=== PATIENT | female | born 1975 | race Caucasian/White ===

== ENCOUNTER 2023-03-27 23:41 | Emergency (ER) | payer MEDICARE, MEDICAID, SELFPAY ==
--- NOTE | ~2023-03-27 | XR_ITS ---
Clinical Indication: Shortness of breath PA and lateral views of the chest: Comparison: None Findings: There is linear scarring or atelectasis at the right midlung. Lungs are otherwise clear. No other evidence of focal consolidation or pleural effusion. Cardiomediastinal silhouette is within n ormal limits. Bones and soft tissues are unremarkable. Impression: Linear scarring or atelectasis right midlung, otherwise clear lungs. Reviewed, dictated and finalized at location M. Impression: Linear scarring or atelectasis right midlung, otherwise clear lungs.
[2023-03-27 23:43] VITALS: BP 128/75; PULSE 78; RESP 16; TEMP 36.3; O2SAT 100
[2023-03-27 23:54] VITALS: BP 121/77; PULSE 81; RESP 18; TEMP 36.4; O2SAT 99
[2023-03-27 23:58] VITALS: O2SAT 100
--- NOTE | 2023-03-28 | ECG_ITS ---
Measurements Intervals [place] Rate: 75 P: 23 TN: 179 QRS: -9 QRSD: 104 T: 8 QT: 403 QTc: 451 Interpretive Statements SINUS RHYTHM LOW QRS VOLTAGE IN PRECORDIAL LEADS [QRS DEFLECTION < 1.0 mV IN CHEST LEADS] MODERATE VOLTAGE CRITERIA FOR LVH, CONSIDER NORMAL VARIANT [MEETS CRITERIA IN ONE OF: R(aVL), S(V1), R(V5), R(V5/V6)+S(V1)] POSSIBLE ANTERIOR MYOCARDIAL INFARCTION , PROBABLY OLD [30 ms Q WAVE IN V3/V4, OR R < 0.2 mV IN V4] ABNORMAL ECG NO PREVIOUS ECG AVAILABLE FOR COMPARISON Electronically Signed On 03-28-2023 10:25:56 CDT by Fadi House M.D.
[2023-03-28 00:23] LABS: Basophils Percent Auto 0.3 % (0.2-1.2); Eosinophils Absolute Auto 0.1 K/mm3 (0-0.3); Eosinophils Percent Auto 3.8 % (0-4.4); Hematocrit 44.2 % (37.0-47.0); Hemoglobin 14.5 g/dL (12.0-15.0); Immature Granulocyte Absolute 0.01 K/mm3 (0.00-0.031); Immature Granulocyte Percent A 0.3 % (0-0.5); Immature Platelet Fraction Pct 3.8 % (0.9-11.2); Lymphocytes Absolute Auto 1.31 K/mm3 (0.9-3.2); Mean Corpuscular HGB Conc 32.8 g/dl (32-36); Mean Corpuscular Hemoglobin 30.3 pg (26-34); Mean Corpuscular Volume 92.5 fl (80-100); Mean Platelet Volume 10.1 fl (7.4-10.4); Monocytes Absolute Auto 0.4 K/mm3 (0.1-0.6); Monocytes Percent Auto 11.3 % (2.6-8.5); Neutrophils Absolute Auto 1.8 K/mm3 (1.3-6.7); Neutrophils Percent Auto 48.3 % (45.5-73.1); Platelet Count Result 124 k/mm3 (150-375); Red Blood Count 4.78 M/mm3 (4.2-5.4); Red Cell Distribution Width 12.2 % (11.5-14.5); White Blood Count 3.6 K/mm3 (4.5-10.0)
[2023-03-28 00:31] LABS: Alanine Aminotransferase 33 U/L (6-35); Alkaline Phosphatase 58 U/L (38-126); Anion Gap 7 mmol/L (8-16); Aspartate Amino Transferase 31 U/L (14-36); Bilirubin,Total 0.4 mg/dL (0.2-1.3); Blood Urea Nitrogen 21 mg/dL (7-17); Calcium 8.8 mg/dL (8.4-10.2); Carbon Dioxide 32 mmol/L (22-30); Chloride 101 mmol/L (98-107); Estimated CRCL calculation 87 ml/min; Estimated Glomerular Filt Rate 59; Glucose 120 mg/dL (65-110); Potassium 3.7 mmol/L (3.4-5.0); Sodium 140 mmol/L (137-145)
[2023-03-28 00:32] LABS: INR 1.1; Prothrombin Time 14.2 Seconds (11.1-14.7)
[2023-03-28 00:33] LABS: Partial Thromboplastin Time 32.3 SECONDS (22.3-36.8)
[2023-03-28 00:43] LABS: NT Pro B Type Natriuretic Pept 33 pg/mL (19.9-100); Troponin I < 0.012 ng/mL (0.000-0.034)
[2023-03-28 00:58] LABS: D Dimer 0.37 ug/mL (<0.48)
--- NOTE | 2023-03-28 01:07 | ED.GENADULT ---
HPI - General Adult General Chief complaint: Asthma Stated complaint: asthma attack Time Seen by Provider: 03/27/23 23:49 Source: patient and RN notes reviewed Mode of arrival: ambulatory Limitations: no limitations History of Present Illness HPI narrative: This is a 47 year old female with history of obstructive sleep apnea , asthma, obesity who presents for evaluation of dyspnea. She states she woke up around 10 pm tonight gasping for air. She states she felt like she was having an asthma attack. She used her rescue inhaler 8 times. She states she still feels like she is having chest tightness. She still feels like she is short of breath. She states she is coughing after use of inhaler. She feels somewhat anxious due to use of inhaler. She denies itching, fever, chills, nausea or vomiting. She denies rash. She states she has not used her CPAP for years. Related Data Home Medications Medication Instructions Recorded Confirmed cetirizine 10 mg capsule 10 mg PO DAILY 06/27/19 07/31/21 cholecalciferol (vitamin D3) 25 1,000 unit PO DAILY 06/27/19 07/31/21 mcg (1,000 unit) capsule duloxetine 60 mg capsule,delayed 60 mg PO DAILY 06/27/19 07/31/21 release esomeprazole magnesium 20 mg 20 mg PO DAILY 06/27/19 07/31/21 capsule,delayed release furosemide 20 mg tablet 20 mg PO BID 06/27/19 07/31/21 levothyroxine 88 mcg capsule 88 mcg PO DAILY 06/27/19 07/31/21 (Tirosint) lisinopril 2.5 mg tablet 2.5 mg PO DAILY 06/27/19 07/31/21 meloxicam 15 mg tablet 15 mg PO DAILY 06/27/19 07/31/21 metoclopramide HCl 5 mg tablet 5 mg PO DAILY 06/27/19 07/31/21 (Reglan) spironolactone 25 mg tablet 25 mg PO DAILY 06/27/19 07/31/21 sumatriptan succinate 100 mg tablet 100 mg PO ONCE 06/27/19 07/31/21 topiramate 100 mg capsule,extended 100 mg PO DAILY 06/27/19 07/31/21 release 24 hr dexlansoprazole 30 mg 30 mg PO BID 02/05/20 03/18/21 capsule,biphase delayed release (Dexilant) hydrocodone bitartrate 15 mg 15 mg PO TID 02/05/20 03/18/21 capsule, oral only, extended rel 12 hr cyclosporine 0.05 % eye drops 1 drp EACH EYE Q12H 03/18/21 07/31/21 (Restasis MultiDose) hydroxychloroquine 200 mg tablet 200 mg PO BID 03/18/21 07/31/21 aripiprazole 10 mg tablet (Abilify) 10 mg PO DAILY 07/31/21 07/31/21 Allergies Allergy/AdvReac Type Severity Reaction Status Date / Time erythromycin base Allergy Severe PALPITATION Verified 03/27/23 23:41 S guaifenesin Allergy Severe HIVES Verified 03/27/23 23:41 (ENTEX) Penicillins Allergy Severe PALPITATION Verified 03/27/23 23:41 S phenylephrine Allergy Severe HIVES Verified 03/27/23 23:41 (ENTEX) phenylpropanolamine Allergy Severe HIVES Verified 03/27/23 23:41 (ENTEX) codeine Allergy Unknown hives Verified 03/27/23 23:41 fentanyl Allergy Unknown hives Verified 03/27/23 23:41 morphine Allergy Unknown rash Verified 03/27/23 23:41 shrimp Allergy Unknown vomiting Verified 03/27/23 23:41 strawberry Allergy Unknown hives Verified 03/27/23 23:41 Sulfa (Sulfonamide Allergy Unknown hives Verified 07/31/21 10:34 Antibiotics) aspartame AdvReac Unknown swollen Verified 07/31/21 10:34 throat NUTRA SWEET Allergy Severe SWELLING Uncoded 07/31/21 10:34 OF THROAT/DIFFICULTY BREATHING Review of Systems Constitutional: Constitutional: Denies weakness Cardiovascular: Cardiovascular: Denies syncope, Denies rapid heart rate, Denies irregular heart rhythm, Denies leg edema and Denies dyspnea Respiratory: Respiratory: Reports chest congestion, Denies hemoptysis, Denies excessive phlegm production and Reports dyspnea Gastrointestinal: Gastrointestinal: Denies abdominal pain, Denies hematochezia, Denies diarrhea and Denies vomiting Genitourinary: Genitourinary: Denies hematuria and Denies dysuria Musculoskeletal: Musculoskeletal: Denies joint swelling, Denies loss of height and Denies muscle weakness Neurologic: Denies syncope, Denies focal weakness and Den
[2023-03-28 02:14] VITALS: BP 122/72; PULSE 70; RESP 16; O2SAT 96
== END 2023-03-28 02:15 | disposition home or self-care (01) ==
PROVIDERS: Emergency Provider General Practice; PCP Family Medicine
DX: R06.00 Dyspnea, unspecified (principal); R07.89 Other chest pain; J45.909 Unspecified asthma, uncomplicated; E03.9 Hypothyroidism, unspecified; E66.9 Obesity, unspecified; Z68.41 Body mass index [BMI] 40.0-44.9, adult; G47.33 Obstructive sleep apnea (adult) (pediatric); M79.7 Fibromyalgia; F32.A Depression, unspecified; Z90.710 Acquired absence of both cervix and uterus; R94.31 Abnormal electrocardiogram [ECG] [EKG]
CPT/HCPCS: 36415; 36600; 71046; 80053; 83880; 84484; 85025; 85055; 85380; 85610; 85730; 93005; 99284

== ENCOUNTER 2023-08-22 10:14 | Emergency (ER) | payer MEDICAID, SELFPAY ==
[2023-08-22 10:27] VITALS: BP 134/68; PULSE 72; RESP 16; TEMP 37.3; O2SAT 99
--- NOTE | 2023-08-22 10:53 | ED.SKABFB ---
HPI - Skin/Abscess/Foreign Bdy General Chief complaint: Skin/Abscess/Foreign Body Stated complaint: Rash Source: patient Mode of arrival: ambulatory Limitations: no limitations History of Present Illness HPI narrative: 48-year-old female presented for complaint of red itchy rash to right hand and both forearms for about 4 days. She denies pain or drainage to the sites. Reports one small area to under the nose. She endorses having stayed in a motel and going through old danyelle belongings. at bedside has similar small patch of rash on left arm. Has not applied anything to the site. States soap zepeda. Denies lip, tongue, or throat swelling, shortness of breath or wheezing. Denies changes to soap, detergent, lotion, or any other exposures. No one else in the house or any contacts with similar symptoms. Related Data Home Medications Medication Instructions Recorded Confirmed cetirizine 10 mg capsule 10 mg PO DAILY 06/27/19 07/05/23 cholecalciferol (vitamin D3) 25 1,000 unit PO DAILY 06/27/19 07/05/23 mcg (1,000 unit) capsule duloxetine 60 mg capsule,delayed 60 mg PO DAILY 06/27/19 07/05/23 release esomeprazole magnesium 20 mg 20 mg PO DAILY 06/27/19 07/05/23 capsule,delayed release furosemide 20 mg tablet 20 mg PO BID 06/27/19 07/05/23 levothyroxine 88 mcg capsule 88 mcg PO DAILY 06/27/19 07/05/23 (Tirosint) lisinopril 2.5 mg tablet 2.5 mg PO DAILY 06/27/19 07/05/23 spironolactone 25 mg tablet 25 mg PO DAILY 06/27/19 07/05/23 sumatriptan succinate 100 mg tablet 100 mg PO ONCE 06/27/19 07/05/23 topiramate 100 mg capsule,extended 100 mg PO DAILY 06/27/19 07/05/23 release 24 hr hydroxychloroquine 200 mg tablet 200 mg PO BID 03/18/21 07/05/23 aripiprazole 10 mg tablet (Abilify) 10 mg PO DAILY 07/31/21 07/05/23 albuterol sulfate 2.5 mg/3 mL 2.5 mg inhalation Q4-6H PRN 04/11/23 07/05/23 (0.083 %) solution for nebulization Shortness Of Breath celecoxib 200 mg capsule 200 mg PO 04/11/23 07/05/23 lifitegrast 5 % eye drops in a 1 drp EACH EYE 04/11/23 07/05/23 dropperette (Xiidra) metoclopramide HCl 5 mg tablet 5 mg PO DAILY 07/05/23 07/05/23 (Reglan) allopurinol 100 mg tablet mg 08/22/23 fluticasone propionate 115 inhalation 08/22/23 mcg-salmeterol 21 mcg/actuation HFA inhaler (Advair HFA) Allergies Allergy/AdvReac Type Severity Reaction Status Date / Time erythromycin base Allergy Severe PALPITATION Verified 08/22/23 10:23 S guaifenesin Allergy Severe HIVES Verified 08/22/23 10:23 (ENTEX) Penicillins Allergy Severe PALPITATION Verified 08/22/23 10:23 S phenylephrine Allergy Severe HIVES Verified 08/22/23 10:23 (ENTEX) phenylpropanolamine Allergy Severe HIVES Verified 08/22/23 10:23 (ENTEX) prednisone Allergy Intermediate Hives Verified 08/22/23 10:23 codeine Allergy Unknown hives Verified 08/22/23 10:23 fentanyl Allergy Unknown hives Verified 08/22/23 10:23 morphine Allergy Unknown rash Verified 08/22/23 10:23 shrimp Allergy Unknown vomiting Verified 08/22/23 10:23 strawberry Allergy Unknown hives Verified 07/12/23 10:18 Sulfa (Sulfonamide Allergy Unknown hives Verified 07/12/23 10:18 Antibiotics) aspartame AdvReac Unknown swollen Verified 07/12/23 10:18 throat NUTRA SWEET Allergy Severe SWELLING Uncoded 07/12/23 10:18 OF THROAT/DIFFICULTY BREATHING Review of Systems Review of Systems: CONSTITUTIONAL: Denies body aches, fever, chills, or sweats. EYES: Denies visual changes, redness, or discharge. ENT: Denies rhinorrhea, congestion CARDIOVASCULAR: Denies chest pain, palpitations, or edema. RESPIRATORY: Denies cough or dyspnea. GASTROINTESTINAL: Denies abdominal pain, nausea, vomiting, or diarrhea. SKIN: reports rash MUSCULOSKELETAL: Denies back pain, joint pain, or myalgia. NEUROLOGIC: Denies headache, numbness, tingling, or weakness. [facility] Past Medical History Medical History A
== END 2023-08-22 11:13 | disposition home or self-care (01) ==
PROVIDERS: Emergency Provider Nurse Practitioner Family; PCP Family Medicine
DX: L25.9 Unspecified contact dermatitis, unspecified cause (principal); J45.909 Unspecified asthma, uncomplicated; M79.7 Fibromyalgia; E03.9 Hypothyroidism, unspecified; E66.9 Obesity, unspecified; Z68.39 Body mass index [BMI] 39.0-39.9, adult
CPT/HCPCS: 99213; G0463

== ENCOUNTER 2023-08-24 12:53 | Outpatient (CLI) | payer MEDICAID, SELFPAY ==
--- NOTE | ~2023-08-24 | MR_ITS ---
EXAMINATION: MR thoracic spine wo con DATE: 08/24/2023 13:46 INDICATION: Other intervertebral disc displacement. Low back pain. Right leg pain. TECHNIQUE: Magnetic resonance imaging (MRI) of the thoracic spine was performed without intravenous c ontrast. COMPARISON: Thoracic spine MRI 01/07/2009 FINDINGS: There is 9 degrees dextrocurvature of thoracic spine. There are changes of anterior fusion procedure from C5 to C7. There is mild chronic anterior wedging of T11-L1 vertebral bodies. There is mildly decreased disc height from T3-T4 through T9-T10. There is severely decreased disc height at T1 1-T12 and T12-L1. There is multilevel facet joint osteoarthritis, severe at many levels. There is mul tilevel mild neural foraminal stenosis bilaterally. At T2-T3, there is a left central extrusion with mild central canal stenosis. At T3-T4, there is a central protrusion with mild central canal stenosis . At T5-T6, there is a central protrusion with mild central canal stenosis. From T6-T7 through T9-T10 , there are left central extrusions with mild central canal stenosis. At T11-T12 and T12-L1, the disc s are bulging with mild central canal stenosis. The spinal cord signal intensity is normal. The conus medullaris is at L1-L2. IMPRESSION: 1. Severe lower thoracic spondylosis. Reviewed, dictated and finalized at location E. OPEDIC CAST SPECIALIST
--- NOTE | ~2023-08-24 | CT_ITS ---
EXAMINATION: CT lumbar spine wo con DATE: 08/24/2023 13:23 INDICATION: Dorsalgia, unspecified. TECHNIQUE: Computed tomography (CT) of the lumbar spine was performed without intravenous contrast. A utomated exposure control and iterative reconstruction technique were employed. The dose-length produ ct was 1401.83 mGy-cm. COMPARISON: Thoracolumbar radiographs 08/24/2023 FINDINGS: There is 12 degrees levoscoliosis of thoracolumbar spine. There is mild chronic anterior we dging of T11-L1 vertebral bodies. There are changes of anterior and posterior fusion procedures from L3 to S1 with healed interbody bone graft and pedicle screws. There is severely decreased disc height at T11-T12 and T12-L1. The following disc levels are specifically discussed: L1-L2: The disc is bulging. There is moderate bilateral facet joint osteoarthritis. There is mild lef t neural foraminal stenosis. There is mild central canal stenosis. L2-L3: The disc is bulging. There is moderate right and severe left facet joint osteoarthritis. There is mild bilateral neural foraminal stenosis. There is mild central canal stenosis. L3-L4: There is mild right facet joint hypertrophy. There is mild right neural foraminal stenosis. Th ere is no central canal stenosis. L4-L5: There is no facet joint hypertrophy. There is no neural foraminal stenosis. There is no centra l canal stenosis. L5-S1: There is mild bilateral facet joint hypertrophy. There is no neural foraminal stenosis. There is no central canal stenosis. IMPRESSION: 1. Anterior and posterior fusion procedures from L3 to S1. 2. Severe thoracolumbar spondylosis. 3. Thoracolumbar levoscoliosis. Reviewed, dictated and finalized at location E. L FRONT DESK CLERK
--- NOTE | ~2023-08-24 | XR_ITS ---
XR thoracolumbar DATE: 08/24/2023 13:16 INDICATION: Back pain TECHNIQUE: Standing AP and lateral views COMPARISON: None FINDINGS: There is dextroscoliosis and degenerative change of the thoracic spine, including severe de generative disc disease at T11-12 and T12-L1. Status post posterior and interbody surgical spinal fusion at L3-S1. No fracture or bone destruction or spondylolisthesis of the lumbar spine is noted. The sacroiliac joints are intact. Surgical clips, right upper quadrant, likely due to chronic cystectomy. Probable small nonobstructing upper pole left renal calcified calculus. IMPRESSION: Status post posterior and interbody spinal surgical fusion at L3-S1 Severe degenerative disc disease at T11-12 and T12-L1 Reviewed, dictated and finalized at location B. VING MACHINE OPERATOR
== END 2023-08-24 12:54 | disposition home or self-care (01) ==
PROVIDERS: PCP Family Medicine; Visit Provider Neurological Surgery
DX: M43.05 Spondylolysis, thoracolumbar region (principal); M43.27 Fusion of spine, lumbosacral region; M51.25 Other intervertebral disc displacement, thoracolumbar region; M51.34 Other intervertebral disc degeneration, thoracic region; M41.85 Other forms of scoliosis, thoracolumbar region; Z98.1 Arthrodesis status
CPT/HCPCS: 72080; 72131; 72146

== ENCOUNTER 2023-10-27 11:52 | Outpatient (CLI) | payer MEDICARE, MEDICAID, SELFPAY ==
--- NOTE | ~2023-10-27 | CT_ITS ---
EXAMINATION: CT sinus wo con DATE: 10/27/2023 12:08 INDICATION: Chronic sinusitis TECHNIQUE: Computed tomography (CT) of the paranasal sinuses was performed without intravenous contra st. The dose-length product (DLP) was 311.14 mGy-cm. Iterative reconstruction was used. COMPARISON: None FINDINGS: There is normal development and pneumatization of the paranasal sinuses. There is minimal o pacification anteriorly in the left ethmoidal air cells. There is a 14 mm polyp or mucous retention c yst inferiorly in the right maxillary sinus. The frontal, sphenoid, right ethmoid, and left maxillary sinuses are clear. The bilateral ostiomeatal complexes are patent. Visualized soft tissues are unrem arkable. There are 4 mm of rightward deviation of the nasal septum. IMPRESSION: 1. Mild sinus disease as described above. Reviewed, dictated and finalized at location L. AL ASSISTANT
== END 2023-10-27 11:53 | disposition home or self-care (01) ==
LOC: ANHIMG 11:53
PROVIDERS: PCP Family Medicine; Visit Provider Otolaryngology
DX: J32.9 Chronic sinusitis, unspecified (principal)
CPT/HCPCS: 70486

== ENCOUNTER 2023-11-28 10:27 | Outpatient (CLI) | payer MEDICARE, MEDICAID, SELFPAY ==
[2023-11-28 11:30] LABS: Anion Gap 4 mmol/L (4-12); Blood Urea Nitrogen 15 mg/dL (7-17); Calcium 9.5 mg/dL (8.4-10.2); Carbon Dioxide 31 mmol/L (22-30); Chloride 105 mmol/L (98-107); Estimated Glomerular Filt Rate 59; Glucose 96 mg/dL (65-110); Potassium 3.8 mmol/L (3.4-5.0); Sodium 140 mmol/L (137-145)
== END 2023-11-28 10:28 | disposition home or self-care (01) ==
LOC: ANHSURGERY 10:34
PROVIDERS: Anesthesiology; PCP Family Medicine; Visit Provider Otolaryngology
DX: Z01.818 Encounter for other preprocedural examination (principal); Z79.899 Other long term (current) drug therapy
CPT/HCPCS: 36415; 80048

== ENCOUNTER 2023-12-27 00:12 | Day surgery (SDC) | payer MEDICARE, MEDICAID, SELFPAY ==
[2023-11-25 13:18] VITALS: BMI 43.6
--- NOTE | 2023-11-25 13:26 | PC.NURSE ---
Report to the Outpatient Waiting Room, entrance under the green pavilion located off [facility], at time 8:00 on date 12/06/23. Planned Procedure Time: 10:00. Time changes happen often and if your time is changed the preop area will call you the afternoon before. - You and your visitor will be asked to self-screen and do not enter if you have any COVID symptoms. - A mask is optional within the hospital at this time. Patients may have clear liquids (water, carbonated beverages, clear teas, apple juice) until 3 hours prior to surgery (7:00) with a maximum of 20 ounces. - No food from midnight until time of surgery Take the following medications with a SIP of water the morning of surgery: INHALERS, DULOXETINE, LEVOTHYROXINE, TOPIRAMATE DO NOT STOP ANY OF YOUR OTHER PRESCRIPTION MEDICATIONS PRIOR TO SURGERY ?EXCEPT THE FOLLOWING Medications to discontinue per physician: VITAMINS/SUPPLEMENTS Date to take last dose: 12/02/[address] DALY RE: CELEBREX Please no make-up, nail icelandic, hairspray, perfume, deodorant, or body powder the day of surgery. No jewelry (including any body piercings) or valuables the day of surgery, leave them at home. Please take a shower or bath the night before, or the morning of, surgery with an antibacterial soap. Wear comfortable, loose fitting clothing. - Jewelry must be removed prior to entering the operating room. Rings and piercings that are not removed may be cut off. - The hospital will not accept responsibility for valuables. - Please leave all valuables, including medications, at home the day of surgery. If you are going home after surgery, a licensed wheat combine driver must drive you home. - NO public transportation without another adult if you receive anesthesia. - We recommend that an adult stay with you for 24 hours following discharge. - We also recommend that you do not drive, make important decision, drink alcoholic beverages, or take any drugs that were not prescribed by your health care provider for at least 24 hours after your discharge time. Follow any additional instructions given to you from your surgeon. If you or anyone in your household have experienced Covid symptoms in the past week, please notify your surgeon or the nurse liaison at the phone number below for possible testing. Telephone instructions given to PT - NOVEMBER and asked if any additional questions and then verbalized understanding. Patient advised to call surgeon office or pre surgery nurse liaison [phone] if any additional questions.
--- NOTE | 2023-12-20 16:00 | PC.NURSE ---
Report to the Outpatient Waiting Room, entrance under the green pavilion located off [facility], at time _0630_ on date _[phone]_. Planned Procedure Time: _0830_. Time changes happen often and if your time is changed the preop area will call you the afternoon before. - You and your visitor will be asked to self-screen and do not enter if you have any COVID symptoms. - A mask is optional within the hospital at this time. Patients may have clear liquids (water, carbonated beverages, clear teas, apple juice) until 3 hours prior to surgery with a maximum of 20 ounces. - No food from midnight until time of surgery Take the following medications with a SIP of water the morning of surgery: __Inhalers, Duloxetine, Levothyroxine and Topiramate.____ DO NOT STOP ANY OF YOUR OTHER PRESCRIPTION MEDICATIONS PRIOR TO SURGERY ?EXCEPT THE FOLLOWING Medications to discontinue per physician __Patient stopping Celebrex 12-22-2023, Stop all vitamins and supplements [id number]____ Please no make-up, nail kyrgyz, hairspray, perfume, deodorant, or body powder the day of surgery. No jewelry (including any body piercings) or valuables the day of surgery, leave them at home. Please take a shower or bath the night before, or the morning of, surgery with an antibacterial soap. Wear comfortable, loose fitting clothing. - Jewelry must be removed prior to entering the operating room. Rings and piercings that are not removed may be cut off. - The hospital will not accept responsibility for valuables. - Please leave all valuables, including medications, at home the day of surgery. If you are going home after surgery, a licensed regional owner operator truck driver must drive you home. - NO public transportation without another adult if you receive anesthesia. - We recommend that an adult stay with you for 24 hours following discharge. - We also recommend that you do not drive, make important decision, drink alcoholic beverages, or take any drugs that were not prescribed by your health care provider for at least 24 hours after your discharge time. Follow any additional instructions given to you from your surgeon. If you or anyone in your household have experienced Covid symptoms in the past week, please notify your surgeon or the nurse liaison at the phone number below for possible testing. Telephone instructions given to _November__and asked if any additional questions and then verbalized understanding. Patient advised to call surgeon office or pre surgery nurse liaison [phone] if any additional questions.
--- NOTE | 2023-12-26 15:04 | PM.IMHP ---
H&P: HPI History of Present Illness Date/Time: 12/26/23 15:04 Chief Complaint: Nasal obstruction nasal congestion septal deviation turbinate hypertrophy chronic sinusitis Narrative: planned procedure Review of Systems Review of Systems: All systems reviewed & are unremarkable except as noted in HPI and below PMFSH Past Medical History Medical History Asthma Cholecystectomy planned Depression Fibromyalgia Hypothyroidism Obesity MATT (obstructive sleep apnea) Rhinitis Right knee meniscal tear repair 03/2023 Surgical History Surgical History H/O knee surgery H/O: hysterectomy History of appendectomy Previous back surgery Family History Family History Mother Hypertension Family history of type 2 diabetes mellitus Father Hypertension Family history of heart disease in male family member before age 55 Asthma Heart disease Cancer Diabetes mellitus Sibling Depression Social History Social History Smoking status: Never smoker Second hand tobacco smoke exposure: No Alcohol intake: never Substance use: current Substance use type: marijuana Other substance usage details: GUMMIES FOR PAIN PRN Lack of Transportation: No Lack of Food: Sometimes True Current Housing: I Have Housing Concerned About Future Housing: No Difficulty Paying Gas/Electric Bills: No Difficulty Paying for Meds: No Currently Unemployed: No Education: Master's Degree or Higher Difficulty w/ Childcare or Family Care: No Living arrangements: with family Additional living arrangements comments: , [place]. Occupation/Education: other Additional occupation/education comments: disabled Gender identity (if verbalized by the patient): Female Spiritual care concerns: No Meds Home Medications and Allergies Home Medications Medication Instructions Recorded Confirmed Type cetirizine 10 mg capsule 10 mg PO DAILY 06/27/19 12/20/23 History cholecalciferol (vitamin D3) 25 1,000 unit PO DAILY 06/27/19 12/20/23 History mcg (1,000 unit) capsule duloxetine 60 mg capsule,delayed 60 mg PO DAILY 06/27/19 12/20/23 History release esomeprazole magnesium 20 mg 20 mg PO DAILY 06/27/19 12/20/23 History capsule,delayed release levothyroxine 88 mcg capsule 88 mcg PO DAILY 06/27/19 12/20/23 History (Tirosint) lisinopril 2.5 mg tablet 2.5 mg PO DAILY 06/27/19 12/20/23 History spironolactone 25 mg tablet 25 mg PO DAILY 06/27/19 12/20/23 History sumatriptan succinate 100 mg tablet 100 mg PO ONCE 06/27/19 12/20/23 History topiramate 100 mg capsule,extended 100 mg PO DAILY 06/27/19 12/20/23 History release 24 hr hydroxychloroquine 200 mg tablet 200 mg PO BID 03/18/21 12/20/23 History aripiprazole 10 mg tablet (Abilify) 10 mg PO DAILY 07/31/21 12/20/23 History albuterol sulfate 2.5 mg/3 mL 2.5 mg (3 mL) inhalation QID PRN 04/11/23 12/20/23 Rx (0.083 %) solution for nebulization shortness of breath or wheezing #360 mL celecoxib 200 mg capsule 200 mg PO DAILY 04/11/23 12/20/23 History lifitegrast 5 % eye drops in a 1 drp EACH EYE BID 04/11/23 12/20/23 History dropperette (Xiidra) peak flow meter #1 ea 04/11/23 12/20/23 Rx albuterol sulfate 90 mcg/actuation 1 - 2 inh inhalation Q4-6H PRN 07/05/23 12/20/23 Rx aerosol inhaler (Ventolin HFA) shortness of breath or wheezing #8.5 grams allopurinol 100 mg tablet 100 mg PO BID 08/22/23 12/20/23 History furosemide 20 mg tablet 40 mg PO DAILY 08/31/23 12/20/23 History montelukast 10 mg tablet 10 mg PO QHS #30 tabs 10/10/23 12/20/23 Rx Advair HFA 115 mcg-21 2 puff inhalation BID #12 grams 10/19/23 12/20/23 Rx mcg/actuation aerosol inhaler (fluticasone propion-salmeterol) Allergies Allergy/AdvReac Type Severity Reaction Status Date
[2023-12-27] VITALS (8 sets, daily range): BP systolic 123–147; BP diastolic 62–91; PULSE 68–104; RESP 16–23; TEMP 36.1–36.3; O2SAT 94–100; BMI 43.0
[2023-12-27] MEDS: ACETAMINOPHEN 500 MG TABLET 1000 MG PO (07:16)
--- NOTE | 2023-12-27 07:16 | WPDHPUPDATE1 ---
History and Physical Update Update Date/Time: 12/27/23 07:16 History and Physical has been reviewed, including an updated exam of the patient. There are NO changes in the patient's condition. Risks, benefits, and alternatives have been discussed and questions answered. Patient agrees to proceed with procedure.
--- NOTE | 2023-12-27 07:48 | WPDANESEPPF ---
Anes - Initial Pre Proc Eval Procedure: Operation Date: 12/27/23 08:30 Proposed Procedures p Image Guided Bilateral Maxillary Antrostomy, Left Sided Anterior Ethmoidectomy, Bilateral Inferior Turbinate Reduction with Outfracture, - Harinder Romero MD s Endoscopic Septoplasty - Harinder Romero MD Date/Time: 12/27/23 07:48 Surgeon: Harinder Romero MD Pre Op Diagnosis: chronic sinusitis,septal deviation Patient Data Age: 48 Gender: F Height: 1.73 m Weight: 128.5 kg Last Vital Signs Temp 36.3 C L 12/27/23 07:31 Pulse 68 12/27/23 07:31 Resp 18 12/27/23 07:31 BP 147/91 H 12/27/23 07:31 Pulse Ox 97 12/27/23 07:31 O2 Del Method Room Air 12/27/23 07:31 Allergies Allergy/AdvReac Type Severity Reaction Status Date / Time erythromycin base Allergy Severe PALPITATION Verified 12/20/23 15:22 S guaifenesin Allergy Severe HIVES Verified 12/20/23 15:22 (ENTEX) Penicillins Allergy Severe PALPITATION Verified 12/20/23 15:22 S phenylephrine Allergy Severe HIVES Verified 12/20/23 15:22 (ENTEX) phenylpropanolamine Allergy Severe HIVES Verified 12/20/23 15:22 (ENTEX) prednisone Allergy Intermediate Hives Verified 12/20/23 15:22 codeine Allergy Unknown hives Verified 12/20/23 15:22 fentanyl Allergy Unknown hives Verified 12/20/23 15:22 morphine Allergy Unknown rash Verified 12/20/23 15:22 shrimp Allergy Unknown vomiting Verified 12/20/23 15:22 strawberry Allergy Unknown hives Verified 12/20/23 15:22 Sulfa (Sulfonamide Allergy Unknown hives Verified 12/20/23 15:22 Antibiotics) aspartame AdvReac Unknown swollen Verified 12/20/23 15:22 throat NUTRA SWEET Allergy Severe SWELLING Uncoded 12/20/23 15:22 OF THROAT/DIFFICULTY BREATHING Home Medications Medication Instructions Recorded Confirmed Type cetirizine 10 mg capsule 10 mg PO DAILY 06/27/19 12/20/23 History cholecalciferol (vitamin D3) 25 1,000 unit PO DAILY 06/27/19 12/20/23 History mcg (1,000 unit) capsule duloxetine 60 mg capsule,delayed 60 mg PO DAILY 06/27/19 12/20/23 History release esomeprazole magnesium 20 mg 20 mg PO DAILY 06/27/19 12/20/23 History capsule,delayed release levothyroxine 88 mcg capsule 88 mcg PO DAILY 06/27/19 12/20/23 History (Tirosint) lisinopril 2.5 mg tablet 2.5 mg PO DAILY 06/27/19 12/20/23 History spironolactone 25 mg tablet 25 mg PO DAILY 06/27/19 12/20/23 History sumatriptan succinate 100 mg tablet 100 mg PO ONCE 06/27/19 12/20/23 History topiramate 100 mg capsule,extended 100 mg PO DAILY 06/27/19 12/20/23 History release 24 hr hydroxychloroquine 200 mg tablet 200 mg PO BID 03/18/21 12/20/23 History aripiprazole 10 mg tablet (Abilify) 10 mg PO DAILY 07/31/21 12/20/23 History albuterol sulfate 2.5 mg/3 mL 2.5 mg (3 mL) inhalation QID PRN 04/11/23 12/20/23 Rx (0.083 %) solution for nebulization shortness of breath or wheezing #360 mL celecoxib 200 mg capsule 200 mg PO DAILY 04/11/23 12/27/23 History lifitegrast 5 % eye drops in a 1 drp EACH EYE BID 04/11/23 12/20/23 History dropperette (Xiidra) peak flow meter #1 ea 04/11/23 12/20/23 Rx albuterol sulfate 90 mcg/actuation 1 - 2 inh inhalation Q4-6H PRN 07/05/23 12/20/23 Rx aerosol inhaler (Ventolin HFA) shortness of breath or wheezing #8.5 grams allopurinol 100 mg tablet 100 mg PO BID 08/22/23 12/20/23 History furosemide 20 mg tablet 40 mg PO DAILY 08/31/23 12/20/23 History montelukast 10 mg tablet 10 mg PO QHS #30 tabs 10/10/23 12/20/23 Rx Advair HFA 115 mcg-21 2 puff inhalation BID #12 grams 10/19/23 12/20/23 Rx mcg/actuation aerosol inhaler (fluticasone propion-salmeterol) Patient hx anesthesia problems: post op nausea/vomiting Family hx anesthesia problems: none Results Review: All pre-operative results and documents have been reviewed as part of the pre-operative evaluation. [facility] Past Medical History Medical History Asthma C
[2023-12-27] MEDS: LACTATED RINGERS 1,000 ML 30 ML IV CONT ×2 (08:33→11:20)
[2023-12-27] MEDS: SCOPOLAMINE 1 MG PATCH 1 PATCH TRANSDERM (08:33)
[2023-12-27] MEDS: ceFAZolin 3 GM/D5W 100 ML 100 ML IVPB (08:36)
[2023-12-27] MEDS: OXYMETAZOLINE HCL 0.05% NAS 15 ML BTL (*BKC) 1 SPRAY NASAL (09:09)
[2023-12-27] MEDS: LIDO 1%/EPINEPHRINE 1:100,000 50 ML VIAL 20 ML INFILTRATE (09:10)
[2023-12-27] MEDS: MUPIROCIN 2% OINT 22 GM TUBE 1 APPLIC EACH NARE (09:10)
--- NOTE | 2023-12-27 11:46 | P.OP_ITS ---
Procedure Note - Detailed Date of Procedure 12/27/23 Pre-op Diagnosis chronic sinusitis,septal deviation, turbinate hypertrophy Post-op Diagnosis Same Procedure Performed bilateral image guided maxillary antrostomies, left-sided anterior ethmoidectomy, endoscopic assisted septoplasty, inferior turbinate reduction with outfracture bilaterally Surgeon Harinder Romero MD Anesthesia General Indications see above Findings minimal tears in the septum straight very well severe right deviation mid to posterior with a big bony spur. A tear over this obviously. Excess bleeding probably 125 cc for an anterior based sinus surgery. Patient does ooze from everywhere. Small tears in the septum not opposing each other turbinates reduced very well sinuses open nicely thick mucus in the left anterior ethmoid. Description of Procedure Patient identified consent verified preoperative patient brought operating. Time-out performed. General anesthesia induced endotracheal tube secured. Patient prepped prepped draped position procedure confirmed 2nd time-out performed. Image guidance initiated confirmed. Afrin-soaked pledgets placed for 5 minutes then removed. 0 degree scope and will use 0 degree endoscope ut ilized. Total 15 cc 1% lidocaine 1 100,000 parts epinephrine injected bilateral nasal septum and inferior turbinates. Guevara incision made left-sided left nasal septal flap elevated. Excess bleeding. Controlled with intermittent application Afrin-soaked pledgets. Osteotome utilized to cross over right nasal septal flap elevated. Deviated septum removed Lee Aldana forceps osteotome Jos forceps. Large tear over the right spur none on the left. FloSeal placed cotton noise placed septum closed anteriorly AK the Guevara incision with 3 interrupted 5 0 fast gut sutures. Turbinates reduced submucosal plane after stab incision with 15 blade 2.0 [employer] microdebrider. Small tears FloSeal placed cotton used to tamponade they were then outfractured the [place] elevator. Good reduction. Maxillary antrostomies performed under image guidance with a double ball tip probe backbiter straight through cut and microdebrider no damage to orbit no damage to septum no damage to turbinates. 30 degree endoscope was utilized to ensure that connect to the natural os. Left anterior ethmoidectomy performed with Compact [employer]icle [employer]eleration[employer] microdebrider under image guidance. Thick mucus removed. Excess bleeding again. Wound copiously irrigated out patient could not use Nova pack so we used not Gelfoam the really flimsy nasal packing that does not have shall fish I forget the name for the moment. Small pieces were placed in the bilateral middle meatus to stent the turbinates medially as well as catch any blood. Meehan splints placed ensured to be below over tears as well as lateral to the middle turbinates sutured anteriorly using a 3-0 nylon suture. Patient tolerated the procedure well no complications I performed all dictated portions procedure blood loss 125 cc. Care the patient given Anesthesiology patient taken to PACU. Estimated Blood Loss 125 Drains No Packing Yes (non shellfish based packing) Pathology None sent Complications No immediate complications Condition Stable Disposition PACU [facility] Billing Surgery - Charge Forward: Surgery Billing
[2023-12-27] MEDS: MEPERIDINE HCL INJ (*CRX) 50 MG/ML AMPUL 25 MG IV PUSH ×2 (11:50→12:51)
== END 2023-12-27 13:12 | disposition home or self-care (01) ==
PROVIDERS: PCP Family Medicine; Visit Provider Otolaryngology
PROC: (CPT 31256; principal; 2023-12-27 08:30)
PROC: (CPT 30520; 2023-12-27 08:30)
DX: J32.9 Chronic sinusitis, unspecified (principal); J34.3 Hypertrophy of nasal turbinates; J34.2 Deviated nasal septum; J34.89 Other specified disorders of nose and nasal sinuses; J45.909 Unspecified asthma, uncomplicated; E03.9 Hypothyroidism, unspecified; G47.33 Obstructive sleep apnea (adult) (pediatric); M79.7 Fibromyalgia; F32.A Depression, unspecified; Z79.51 Long term (current) use of inhaled steroids; F12.90 Cannabis use, unspecified, uncomplicated; E66.01 Morbid (severe) obesity due to excess calories; Z68.41 Body mass index [BMI] 40.0-44.9, adult
CPT/HCPCS: 31256; 31254; 61782; 30520; 30140; A9270; J0330; J0360; J0690; J1100; J1170; J1200; J2175; J2250; J2405; J2704; J7050; J7120

== ENCOUNTER 2024-04-25 08:51 | Outpatient (CLI) | payer MEDICARE, SELFPAY ==
--- NOTE | 2024-05-17 12:35 | WPDSLEEPSTUD ---
Sleep Study Date of Study: 04/25/24 Ordering Provider: Alexander Navarrete APRN Interpreting Physician: Melinda Coello DO Sleep Study Type: Split Polysomnogram Height: 1.7 m Weight: 132.449 kg Body Mass Index: 45.7 Neck Circumference (inches): 21 [place]: 13 Reason for Sleep Study Snoring, daytime hypersomnia Sleep History The patient is a 49-year-old that had a sleep study ordered by the pulmonary group for evaluation of sleep. The patient frequently has trouble sleeping when she has a cold. She occasionally wakes up gasping for air throughout the night. She occasionally has breathing problems at night observed by herself or others. She occasionally sweats excessively at night. She rarely has heart palpitations or irregular heartbeats during the night. She occasionally falls asleep during the day but never while driving. He denies sleep paralysis and cataplexy. She rarely experiences vivid dreamlike scenes upon awakening or falling asleep. She denies feeling afraid of going to sleep. She rarely has nightmares. She constantly remembers her dreams. She frequently has thoughts racing through mind. She occasionally feels sad, depressed and anxious. She frequently has muscular tension. She frequently notices parts of her body jerk. She occasionally kicks during the night. She occasionally has crawling and aching feelings in her legs and constantly has leg pain during the night. She denies grinding her teeth during sleep frequently awakens morning pain. She is constantly bothered by pain during the day and constantly awakened by pain during the night. She constantly wakes feeling stiff in the morning. She constantly wakes up with sore or achy muscles. She constantly wakes up with pain in the spine and other joints. She goes to bed between 11:00 p.m. to 2:00 a.m. on both weekdays and weekends. It takes her 1-2 hours to fall asleep. She wakes up 2-3 times throughout the night either she urinate or due to pain. It takes him 1 hour to fall back asleep. She wakes up between 7-8 a.m. both weekdays and weekends. She typically gets 6 hours of sleep. She will stay in bed for up to an after waking up in the morning. She currently lives with her . She denies consuming any caffeinated beverages within 2 hours of bedtime. She denies engaging in physical exercise before bedtime. She will watch television before falling asleep. She denies taking naps in afternoon or the evening. She consumes 1-2 caffeinated beverages per day. She denies tobacco, alcohol and recreational drug use. [facility] Past Medical History Medical History Asthma Cholecystectomy planned Depression Fibromyalgia Hypothyroidism Obesity MATT (obstructive sleep apnea) Rhinitis Right knee meniscal tear repair 03/2023 Surgical History Surgical History H/O knee surgery H/O: hysterectomy History of appendectomy Previous back surgery Family History Family History Mother Hypertension Family history of type 2 diabetes mellitus Father Hypertension Family history of heart disease in male family member before age 55 Asthma Heart disease Cancer Diabetes mellitus Sibling Depression Social History Social History Social History: Caffeine-tea Smoking status: Never smoker Second hand tobacco smoke exposure: No Alcohol intake: never Substance use: current Substance use type: marijuana Other substance usage details: GUMMIES FOR PAIN PRN Lack of Transportation: No Lack of Food: Sometimes True Current Housing: I Have Housing Concerned About Future Housing: No Difficulty Paying Gas/Electric Bills: No Difficulty Paying for Meds: No Currently Unemployed: No Education: Master's Degree or Higher Diffi
[2024-05-17 12:38] VITALS: BMI 45.7
== END 2024-04-26 08:06 | disposition home or self-care (01) ==
LOC: ANHCSM 09:04
PROVIDERS: PCP Family Medicine; Visit Provider Nurse Practitioner Family
DX: G47.33 Obstructive sleep apnea (adult) (pediatric) (principal)
CPT/HCPCS: 95811

== ENCOUNTER 2024-07-02 12:06 | Outpatient (CLI) | payer MEDICARE, SELFPAY ==
--- NOTE | 2024-07-02 12:36 | ECHO_ITS ---
Patient Info Name: Viviana Duenas Age: 49 years : 1975 Gender: Female Ht: 67 in Wt: 297 lbs BSA: 2.60 m2 HR: 102 bpm BP: 138 / 109 mmHg Technical Quality: Poor Exam Date: 07/02/2024 12:48 PM Exam Location: Echo Lab Patient Status: Outpatient Admit Date: 07/02/2024 Staff Ordering Physician: Alexander Navarrete APRN Production Team Advisor: Luciana Negron RDCS Attending Provider: Alexander Navarrete APRN Referring Physician: Landon ANDERSON; Exam Type: CA echo doppler color flow Study Info Indications R06.09 - Other forms of dyspnea Complete two-dimensional, color flow and Doppler transthoracic echocardiogram is performed. Strain analysis performed. Reason for Poor Study: patient body habitus Summary 1. Complete two-dimensional, color flow and Doppler transthoracic echocardiogram is performed. 2. Left ventricular systolic function is normal, estimated at 50-55%. 3. There is mildly increased left ventricular wall thickness. 4. The left ventricular diastolic function is grade I diastolic dysfunction. 5. There is trivial pericardial effusion. 6. Technically difficult study with limited views. Left Ventricle Left ventricular chamber dimension is normal. Left ventricular systolic function is normal, estimated at 50-55%. There is mildly increased left ventricular wall thickness. Left ventricular septal wall motion is normal. The left ventricular diastolic function is grade I diastolic dysfunction. Right Ventricle Right ventricular chamber dimension is normal. Right ventricular systolic function is normal. Left Atria Left atrial chamber dimension is normal. Right Atria Right atrial chamber dimension is normal. Aortic Valve The aortic valve is not well visualized. There is no aortic valve sclerosis. There is no aortic valve stenosis. There is no aortic valve regurgitation. Pulmonic Valve The pulmonic valve is normal. There is no pulmonic valve stenosis. There is no pulmonic regurgitation. Mitral Valve The mitral valve has normal leaflets. There is no mitral valve stenosis. There is no mitral valve regurgitation. Tricuspid Valve The tricuspid valve leaflets are normal. There is no significant tricuspid valve stenosis. There is no tricuspid valve regurgitation. Pericardium/Pleural The pericardium appears normal. There is trivial pericardial effusion. Inferior Vena Cava Normal inferior vena cava with >50% collapse upon inspiration consistent with normal right atrial pressure, 5 mmHg. Aorta The aortic root size at the sinus of Valsalva is normal. The prox ascending aorta size is normal. Left Ventricular Outflow Tract Name Value Normal LVOT 2D LVOT Diameter 2.0 cm LVOT Doppler LVOT Peak Gradient 4 mmHg LVOT Mean Gradient 3 mmHg LVOT VTI 16 cm LVOT VTI/AV VTI Ratio 1.0 LVOT Stroke Volume 51 ml LVOT CO 5.2 l/min LVOT CI 2.0 l/min/m2 Pulmonic Valve Name Value Normal RVOT Doppler RVOT Peak Gradient 2 mmHg PV Doppler PV Peak Gradient 4 mmHg Mitral Valve Name Value Normal MV Doppler MV Decel [place] 388 cm/s2 MV PHT 42 ms MV Area (PHT) 5.2 cm2 4.0-5.0 MV Diastolic Function MV E Peak Velocity 57 cm/s MV A Peak Velocity 104 cm/s MV E/A 0.5 MV Decel Time 146 ms Tricuspid Valve Name Value Normal Estimated PAP/RSVP RA Pressure 5 mmHg <=5 Aortic Valve Name Value Normal AV Doppler AV Peak Velocity 102 cm/s AV Peak Gradient 4 mmHg AV Mean Gradient 3 mmHg AV VTI 16 cm AV Area (Cont Eq VTI) 3.3 cm2 >=3.0 AV Area (Cont Eq Robbie) 3.2 cm2 AV Regurgitation 2D LVOT Area 3.1 cm2 Ventricles Name Value Normal LV Dimensions 2D/MM IVS Diastole Thickness (MM) 1.3 cm 0.6-0.9 LVID Diastole (MM) 7.2 cm 3.8-5.2 LVIW Diastolic Thickness (MM) 0.9 cm 0.6-0.9 LVOT Diameter 2.0 cm LV Mass (MM Cubed) 381.36 g 67.00-162.00 LV Mass Index (MM Cubed) 147 g/m2 43-95 Relative Wall Thickness (MM) 0.24 LV Fractional Shortening/Ejection Fraction 2D/MM LV Diastolic Volume (4C MOD) 51 ml LV EF (4C MOD) 43 % LV Diastolic Volume (2C MOD) 32 ml LV EF (2C MOD) 56 % LV Diastolic Volume (BP MOD) 40 ml 46-106 LV Diastolic Volume Index (BP MOD) 16 ml/m2 29-61 LV Systolic Volume (BP MOD) 22 ml 14-42 LV Systolic Volume Index (BP MOD) 8 ml/m2 8-24 LV EF (BP MOD) 46 % 54-74 LV Diastolic Length (4C) 8.0 cm LV Systolic Length (4C) 7.3 cm LV Stroke Volume (4C MOD) 22 ml Atria Name Value Normal LA Dimensions LA Volume (4C A-L) 21 ml LA Volume (BP A-L) 21 ml RA Dimensions RA Area (4C) 13.8 cm2 <=18.0 EchoPAC Name Value Normal AutoEF LVCO_BiP_Q (Uykf8MPT) 2.9 l/min LVEF_BiP_Q (Jhsv9RJO) 53 % LVSV_BiP_Q (Zxjm2UVD) 32 ml LVVED_BiP_Q (Fuak6WGP) 60 ml LVVES_BiP_Q (Udss3VZY) 29 ml HR_4Ch_Q (Oeqc8WGR) 90 bpm LVCO_4Ch_Q (Ntwx8AQJ) 2.5 l/min LVEF_4Ch_Q (Iwln1KCU) 49 % LVLd_4Ch_Q (Eaqz5IKT) 7.8 cm LVLs_4Ch_Q (Wchq1HKY) 7.0 cm LVSV_4Ch_Q (Cdry6KKX) 28 ml LVVED_4Ch_Q (Mahw8KAT) 57 ml LVVES_4Ch_Q (Yklo6XRU) 29 ml HR_2Ch_Q (Vhlk1LEA) 95 bpm LVCO_2Ch_Q (Yxdg7RWZ) 3.3 l/min LVEF_2Ch_Q (Xsam0LCP) 54 % LVLd_2Ch_Q (Yqox2CEO) 7.7 cm LVLs_2Ch_Q (Supj9TKT) 6.7 cm LVSV_2Ch_Q (Xoto7DOK) 35 ml LVVED_2Ch_Q (Xgth3CFN) 65 ml LVVES_2Ch_Q (Pnyl0PCI) 30 ml BARRY AA peak sys SL (AWMA) 15.1 % AAS peak sys SL (AWMA) 22.7 % AI peak sys SL (AWMA) 21.3 % AL peak sys SL (AWMA) 17.9 % AP peak sys SL (AWMA) 11.4 % peak sys SL (AWMA) 20.6 % AVC (AWMA) 315 ms BA peak sys SL (AWMA) 11.1 % BAS peak sys SL (AWMA) 6.3 % BI peak sys SL (AWMA) 12.2 % BL peak sys SL (AWMA) 5.8 % BP peak sys SL (AWMA) 13.0 % BS peak sys SL (AWMA) 5.3 % G peak SL(A2C) (AWMA) 15.3 % G peak SL(A4C) (AWMA) 10.7 % G peak SL(APLAX) (AWMA) 10.3 % G peak SL(Avg) (AWMA) 12.1 % MA peak sys SL (AWMA) 14.6 % MAS peak sys SL (AWMA) 9.1 % MN peak sys SL (AWMA) 17.7 % ML peak sys SL (AWMA) 9.4 % MP peak sys SL (AWMA) 10.1 % MS peak sys SL (AWMA) 16.3 % Report Signatures
== END 2024-07-02 12:07 | disposition home or self-care (01) ==
LOC: ANHCARD 12:09
PROVIDERS: PCP Family Medicine; Visit Provider Nurse Practitioner Family
DX: R06.09 Other forms of dyspnea (principal)
CPT/HCPCS: 93306